=== PATIENT | female | born 1995 | race Caucasian/White ===

== ENCOUNTER 2020-11-03 10:40 | Outpatient (CLI) | payer MEDICAID | END 2020-11-03 10:41 | disposition home or self-care (01) | LOC: BICULT 10:40 | PROVIDERS: ATTEND Physician Assistant | DX: N94.6 Dysmenorrhea, unspecified (principal); N92.6 Irregular menstruation, unspecified; N85.8 Other specified noninflammatory disorders of uterus | CPT/HCPCS: 76856 ==

== ENCOUNTER 2022-02-28 10:30 | Outpatient (CLI) | payer MEDICAID | END 2022-02-28 10:31 | disposition home or self-care (01) | LOC: BICULT 10:30 | PROVIDERS: ATTEND Physician Assistant | DX: N64.4 Mastodynia (principal) ==